=== PATIENT | male | born 1970 | race Caucasian/White ===

== ENCOUNTER 2017-01-13 10:17 | Emergency (ER) | payer SELFPAY ==
[~2017-01-13] VITALS: Ht 182.9 cm; Wt 99.0 kg
[2017-01-13 10:24] VITALS: BP 128/82
== END 2017-01-13 13:09 | disposition left against medical advice (07) ==
LOC: ER 10:17
DX: Z53.21 Procedure and treatment not carried out due to patient leaving prior to being seen by health care provider (principal)